=== PATIENT | male | born 1950 | race Caucasian/White ===

== ENCOUNTER 2018-09-30 15:58 | Observation (INO) | payer MEDICARE ==
[~2018-09-30] VITALS: Ht 175.3 cm; Wt 106.8 kg
[~2018-09-30 15:58] MED LIST: ALLOPURINOL300 MG PO; AMIODARONE HCL200 MG PO; ASPIR 8181 MG PO; CELEBREX200 MG PO; LASIX40 MG PO; METFORMIN HCL500 MG PO; METOLAZONE5 MG PO; METOPROLOL TART25 MG PO; POTASSIUM CHLO10 ME1 PO; SPIRONOLACTONE25 MG PO; SYNTHROID125 MCG PO; SYNTHROID50 MCG PO; XARELTO20 MG PO
[2018-09-30] MEDS ORDERED: AMIODARONE HCL 150 MG/100 ML BAG IV ONE (16:30)
[2018-09-30] MEDS ORDERED: AMIODARONE HCL 150MG 100 ML IV SCH (16:30)
[2018-09-30] MEDS ORDERED: DIGOXIN INJ 0.25 MG/ML 2 ML AMP IV ONE (16:30)
[2018-09-30 16:39] LABS: BASOPHILS # (AUTO) 0.1 (0.0-0.1); BASOPHILS % 0.6 % (0.0-1.0); EOSINOPHILS # (AUTO) 0.2 (0.0-0.4); EOSINOPHILS % 1.5 % (0.0-6.0); HEMOGLOBIN 11.8 g/dL (14.0-18.0); LYMPHOCYTES # (AUTO) 2.1 (1.0-3.2); LYMPHOCYTES % 18.2 % (18.0-39.1); MEAN CORPUSCULAR HEMOGLOBIN 29.8 pg (28-32); MEAN CORPUSCULAR HGB CONC 33.7 g/dL (31-35); MEAN CORPUSCULAR VOLUME 88.4 fL (81-99); MONOCYTES # (AUTO) 1.1 (0.2-0.8); MONOCYTES % 10.1 % (4.4-11.3); NEUTROPHILS # (AUTO) 7.8 (2.1-6.9); NEUTROPHILS % 69.3 % (38.7-80.0); PLATELET COUNT 399 x10e3/uL (140-360); RED BLOOD COUNT 3.96 x10e6/uL (4.3-5.7); RED CELL DISTRIBUTION WIDTH 14.6 % (11.7-14.4)
[2018-09-30 16:54] LABS: INR 0.96; PROTHROMBIN TIME 13.7 seconds (11.9-14.5)
[2018-09-30 16:55] LABS: PARTIAL THROMBOPLASTIN TIME 38.2 seconds (23.8-35.5)
[2018-09-30 17:01] LABS: ALANINE AMINOTRANSFERASE 13 IU/L (0-55); ALBUMIN 3.9 g/dL (3.5-5.0); ALBUMIN/GLOBULIN RATIO 0.9 (0.8-2.0); ALKALINE PHOSPHATASE 81 IU/L (40-150); ANION GAP 11.8 mmol/L (8-16); BLOOD UREA NITROGEN 15 mg/dL (7-26); BUN/CREATININE RATIO 18 (6-25); CALCIUM 10.4 mg/dL (8.4-10.2); CARBON DIOXIDE 32 mmol/L (22-29); CHLORIDE 94 mmol/L (98-107); CREATINE KINASE 74 IU/L (30-200); CREATININE, SERUM 0.85 mg/dL (0.72-1.25); EST GLOMERULAR FILTRATION RATE > 60 ML/MIN (60-); GLUCOSE 105 mg/dL (74-118); SODIUM 135 mmol/L (136-145)
[2018-09-30 17:04] LABS: POTASSIUM 2.8 mmol/L (3.5-5.1)
[2018-09-30] MEDS ORDERED: POTASSIUM CHLORIDE 20 MEQ TAB CR PO STA (17:06)
[2018-09-30] MEDS ORDERED: POTASSIUM CHLORIDE 20MEQ/100ML 100 ML IV ONE (17:15)
[2018-09-30 17:26] LABS: CLARITY,URINE CLEAR (CLEAR); COLOR,URINE YELLOW (YELLOW)
[2018-09-30 17:27] LABS: BILIRUBIN,URINE NEGATIVE (NEGATIVE); KETONES,URINE NEGATIVE (NEGATIVE); LEUKOCYTE ESTERASE ,URINE NEGATIVE (NEGATIVE); NITRITE,URINE NEGATIVE (NEGATIVE); PROTEIN,URINE DIPSTICK NEGATIVE (NEGATIVE); URINE UROBILINOGEN 0.2 mg/dL (0.2 - 1)
[2018-09-30] MEDS ORDERED: AMIODARONE HCL 900 MG in DEXTROSE 5% 500ML 500 ML IV STA (17:38)
[2018-09-30] MEDS ORDERED: SODIUM CHLORIDE 0.9% 1000ML 1,000 ML IV STA (18:24)
--- NOTE | 2018-09-30 18:35 | Diagnostic Imaging Report ---
EXAMINATION: CHEST SINGLE (PORTABLE) INDICATION: ^CHEST PAIN ^[id number] ^1655 ^Y COMPARISON: None FINDINGS: AP view TUBES and LINES: None. LUNGS: Limited by body habitus. Lungs are well inflated. There is no evidence of pneumonia or pulmonary edema. PLEURA: No pleural effusion or pneumothorax. HEART AND MEDIASTINUM: The cardiomediastinal silhouette is unremarkable. BONES AND SOFT TISSUES: No acute osseous lesion. Soft tissues are unremarkable. UPPER ABDOMEN: No free air under the diaphragm. IMPRESSION: No acute thoracic abnormality. Signed by: Dr. Vineet Belcher MD on 09/30/2018 6:32 PM
[2018-09-30 22:58] VITALS: BP 118/83
[2018-09-30 23:02] VITALS: BP 118/83
[2018-09-30 23:20] VITALS: BP 118/83
[2018-09-30 23:59] VITALS: BP 122/84
[2018-10-01] VITALS (7 sets, daily range): BP systolic 90–117; BP diastolic 53–79
[2018-10-01 00:45] LABS: CREATINE KINASE MB 1.5 ng/mL (0-5.0)
[2018-10-01] MEDS: LEVOTHYROXINE SODIUM 125 MCG TAB PO SCH (06:44)
[2018-10-01] MEDS: METOPROLOL TARTRATE 50 MG TAB PO SCH ×3 (06:44→21:21)
[2018-10-01 07:35] LABS: BASOPHILS # (AUTO) 0.1 (0.0-0.1); BASOPHILS % 0.5 % (0.0-1.0); EOSINOPHILS # (AUTO) 0.2 (0.0-0.4); EOSINOPHILS % 1.7 % (0.0-6.0); HEMATOCRIT 32.4 % (38.2-49.6); HEMOGLOBIN 10.7 g/dL (14.0-18.0); LYMPHOCYTES # (AUTO) 1.6 (1.0-3.2); LYMPHOCYTES % 16.9 % (18.0-39.1); MEAN CORPUSCULAR HEMOGLOBIN 29.4 pg (28-32); MONOCYTES # (AUTO) 0.8 (0.2-0.8); MONOCYTES % 8.6 % (4.4-11.3); NEUTROPHILS # (AUTO) 6.7 (2.1-6.9); NEUTROPHILS % 71.9 % (38.7-80.0); PLATELET COUNT 345 x10e3/uL (140-360); RED BLOOD COUNT 3.64 x10e6/uL (4.3-5.7); RED CELL DISTRIBUTION WIDTH 14.6 % (11.7-14.4)
[2018-10-01 07:48] LABS: ANION GAP 12.4 mmol/L (8-16); BLOOD UREA NITROGEN 9 mg/dL (7-26); BUN/CREATININE RATIO 13 (6-25); CALCIUM 9.9 mg/dL (8.4-10.2); CARBON DIOXIDE 30 mmol/L (22-29); CHLORIDE 97 mmol/L (98-107); CREATININE, SERUM 0.72 mg/dL (0.72-1.25); EST GLOMERULAR FILTRATION RATE > 60 ML/MIN (60-); GLUCOSE 126 mg/dL (74-118); POTASSIUM 3.4 mmol/L (3.5-5.1); SODIUM 136 mmol/L (136-145)
[2018-10-01 08:10] LABS: CREATINE KINASE MB 1.5 ng/mL (0-5.0)
[2018-10-01] MEDS: SPIRONOLACTONE 25 MG TAB PO SCH ×2 (08:10→17:00)
[2018-10-01] MEDS: POTASSIUM CHLORIDE 10MEQ EA PO SCH (08:10)
[2018-10-01] MEDS: DIGOXIN 0.125 MG TAB PO SCH (08:12)
[2018-10-01] MEDS: ENOXAPARIN INJ 80 MG/0.8 ML SYR SC SCH ×2 (08:13→21:00)
[2018-10-01] MEDS: FUROSEMIDE 40 MG TAB PO SCH (08:13)
--- NOTE | 2018-10-01 08:47 | History and Physical ---
PRIMARY CARE PHYSICIAN: Dr. Michael Lei CHIEF COMPLAINT: Chest tightness. HISTORY OF PRESENT ILLNESS: This is a 68-year-old man with a history of cardiac arrhythmia/atrial flutter and diabetes mellitus, now developing chest tightness. He checked his heart rate at home. It was 150 per minute. Therefore, he called his doctor and asked to come to the hospital. Here he was found to have atrial flutter with RVR. He is admitted for further evaluation and management. PAST MEDICAL HISTORY: Diabetes mellitus, type 2, hypertension, atrial flutter, hypothyroidism, CHF, possibly diastolic, and gout. PAST SURGICAL HISTORY: Left finger and cataract surgery. ALLERGIES: PER ELECTRONIC MEDICAL RECORD. FAMILY/SOCIAL HISTORY: Patient is . He has 3 children. No alcohol, illicits or cigarettes. MEDICATIONS: Per electronic medical record. REVIEW OF SYSTEMS: Denies any dizziness, fever, chills, sweats, nausea, vomiting, diarrhea, headache, vision changes, back pain. PHYSICAL EXAMINATION VITAL SIGNS: Reviewed. GENERAL: A tired-appearing man resting in bed. HEENT: Anicteric. CARDIOVASCULAR: Normal S1 and S2. Rapid and irregular heart rate. LUNGS: Moderate breath sounds. ABDOMEN: Soft, nontender and nondistended. EXTREMITIES: No edema or calf tenderness. NEUROLOGICAL: Alert and oriented times 3. Moving all extremities. SKIN: Dry. PSYCHIATRIC: Flat affect. LABS: Reviewed. MEDICATIONS: Reviewed. ASSESSMENT: This is a 66-year-old man with: 1. Atrial flutter with rapid ventricular response. 2. Diabetes mellitus, type 2. 3. Hypothyroidism. 4. Hypokalemia. 5. Congestive heart failure, likely diastolic, which is chronic. 6. Gout. PLAN 1. Rate control with AV blocking agents. Will continue to utilize digoxin, beta clifton and amiodarone. 2. Cardiology consultation. 3. Will add Lovenox q.12 h. 4. Add Pepcid while on Lovenox. 5. Follow up echocardiogram. 6. Monitor closely. Job#: [id number] ME
[2018-10-01 08:51] LABS: CHOL/HDL RATIO 4.1 (3.9-4.7)
[2018-10-01 09:11] LABS: THYROID STIMULATING HORMONE 0.123 uIU/mL (0.350-4.940)
[2018-10-01] MEDS ORDERED: DEXTROSE 50% SYRINGE 50 ML IV PRN (11:00)
[2018-10-01] MEDS: FAMOTIDINE 20 MG TAB PO SCH ×2 (11:28→17:13)
[2018-10-01 13:09] LABS: MAGNESIUM 1.9 MG/DL (1.3-2.1)
[2018-10-01] MEDS ORDERED: POTASSIUM CHLORIDE 20 MEQ TAB CR PO NR (13:30)
[2018-10-01 13:36] LABS: FREE T4 (FREE THYROXINE) 1.46 ng/dL (0.9-1.8)
[2018-10-01 13:37] LABS: DIGOXIN < 0.30 ng/mL (0.8-2.0)
[2018-10-01] MEDS ORDERED: METOPROLOL TARTRATE 25 MG TAB PO SCH (14:00)
--- NOTE | 2018-10-01 15:52 | Consultation ---
DATE OF CONSULTATION: October 01, 2018 CARDIOLOGY CONSULTATION REASON FOR CONSULTATION: Atrial flutter with rapid ventricular response. HISTORY OF PRESENT ILLNESS: This is a 68-year-old man with a history of hypertension, hyperlipidemia, diabetes mellitus, chronic diastolic heart failure, and prior history of atrial fibrillation/flutter who presented from home with rapid heart rate. The patient's states that he had symptoms of palpitations and chest discomfort, and checked his pulse rate on his 's pulse oximeter and noted that it was around 150 beats per minute. The patient then was evaluated here and was found to have atrial flutter with rapid ventricular response. He was initiated on oral digoxin, metoprolol and intravenous amiodarone. Currently, he is feeling well and is ready to go home. Denies any chest pain, palpitations, lightheadedness or near syncopal symptoms. He otherwise feels well and denies any other ongoing symptoms. REVIEW OF SYSTEMS: A 12-point review of systems was conducted, and is negative other than stated above in the HPI. PAST MEDICAL HISTORY: Hypertension, diabetes mellitus, atrial fibrillation/flutter, hypothyroidism. PAST SURGICAL HISTORY: Transesophageal echocardiogram and direct current cardioversion, cataract surgery. PAST FAMILY HISTORY: No premature coronary artery disease or sudden cardiac . SOCIAL HISTORY: No illicit drug use, alcohol or drug use. ALLERGIES: NO KNOWN DRUG ALLERGIES. MEDICATIONS: See medication reconciliation form. PHYSICAL EXAMINATION VITAL SIGNS: Temperature 97.4, heart rate 144, respirations 16, blood pressure 114/79, oxygen saturation 99% on 2 liters nasal cannula. GENERAL: He is well-appearing man lying comfortably in bed, in no apparent distress. Alert and oriented x3. HEENT: Head is normocephalic, atraumatic. Eyes: Extraocular movements are intact. Conjunctivae clear. NECK: No JVD. No bruits. CARDIOVASCULAR: Regular rate, tachycardiac. Normal S1 and S2. No murmurs. LUNGS: Clear to auscultation bilaterally. No wheezing or rales. ABDOMEN: Soft, nontender, nondistended. Normoactive bowel sounds. EXTREMITIES: No cyanosis, clubbing or edema. VASCULAR: 2+ pulses. SKIN: Warm, dry, and intact. NEUROLOGIC: No focal deficits noted. Cranial nerves are grossly intact. PSYCHIATRIC: Normal mood and affect. LABORATORY DATA: Shows white blood cell count of 9, hemoglobin 10, platelets 345,000. Potassium upon arrival was 2.8, currently 3.4. Negative cardiac enzymes x3. TSH is low at 0.123. A 12-lead electrocardiogram showed atrial flutter with rapid ventricular response. Chest x-ray showed no acute thoracic abnormalities. Telemetry monitoring revealed atrial flutter with rapid ventricular response. IMPRESSION AND RECOMMENDATIONS 1. Atrial flutter with rapid ventricular response. The patient is currently asymptomatic. A 2D echocardiogram showed overall preserved left ventricular systolic function. The patient was initiated on amiodarone intravenously and will continue this. The patient is also currently on oral digoxin and beta blockers. Will order a free T4, digoxin level, and a magnesium level in addition to replacing potassium to keep levels greater than 4 and will need to replace magnesium if low to a level greater than 2. If digoxin level is within normal limits, will re-dose with digoxin. The patient may require transesophageal echocardiography and direct cardioversion if does not break within the next 12 to 24 hours. The patient may also consider flutter ablation as an outpatient procedure. 2. Hypertension. The patient's blood pressure is well controlled on current regimen. 3. Hypothyroidism. His TSH is mildly reduced. Will check a free T4 and will defer titration to primary team. 4. Diabetes mellitus. Treatment per primary team. 5. Chest pain. The patient ruled out for acute myocardial infarction. Will defer on stress testing too with outpatient setting. Thank you for the consultation. Will follow along with you. Job#: [id number]
[2018-10-01] MEDS: INSULIN REGULAR, HUMAN 100 UNIT/1 ML 3ML VIAL SQ SCH ×2 (16:30→21:00)
[2018-10-01 16:41] LABS: CREATINE KINASE MB 1.2 ng/mL (0-5.0)
[2018-10-01] MEDS ORDERED: AMIODARONE HCL 900 MG in DEXTROSE 5% 500ML 500 ML IV STA (17:17)
[2018-10-02] VITALS (10 sets, daily range): BP systolic 100–127; BP diastolic 70–83
[2018-10-02] MEDS: LEVOTHYROXINE SODIUM 125 MCG TAB PO SCH (06:00)
[2018-10-02] MEDS: METOPROLOL TARTRATE 50 MG TAB PO SCH ×2 (06:15→17:09)
[2018-10-02] MEDS: FAMOTIDINE 20 MG TAB PO SCH ×2 (07:30→17:09)
[2018-10-02] MEDS: INSULIN REGULAR, HUMAN 100 UNIT/1 ML 3ML VIAL SQ SCH ×4 (07:30→20:22)
[2018-10-02 08:44] LABS: ANION GAP 13.5 mmol/L (8-16); BLOOD UREA NITROGEN 12 mg/dL (7-26); BUN/CREATININE RATIO 16 (6-25); CALCIUM 10.3 mg/dL (8.4-10.2); CARBON DIOXIDE 30 mmol/L (22-29); CHLORIDE 98 mmol/L (98-107); CREATININE, SERUM 0.77 mg/dL (0.72-1.25); EST GLOMERULAR FILTRATION RATE > 60 ML/MIN (60-); GLUCOSE 127 mg/dL (74-118); POTASSIUM 3.5 mmol/L (3.5-5.1); SODIUM 138 mmol/L (136-145)
[2018-10-02] MEDS: POTASSIUM CHLORIDE 10MEQ EA PO SCH (09:00)
[2018-10-02] MEDS: SPIRONOLACTONE 25 MG TAB PO SCH ×2 (09:00→17:09)
[2018-10-02] MEDS: ENOXAPARIN INJ 80 MG/0.8 ML SYR SC SCH (09:30)
[2018-10-02] MEDS: FUROSEMIDE 40 MG TAB PO SCH (09:30)
[2018-10-02] MEDS: DIGOXIN 0.125 MG TAB PO SCH (09:30)
[2018-10-02] MEDS ORDERED: BENZOCAINE 20% SPR 60 ML CAN ONE (11:46)
[2018-10-02] MEDS ORDERED: SODIUM CHLORIDE 0.9% 1000ML 1,000 ML ONE (11:46)
--- NOTE | 2018-10-02 14:49 | Operative Report ---
DATE OF PROCEDURE: PROCEDURES PERFORMED 1. Transesophageal echocardiogram. 2. Direct current cardioversion. PREOPERATIVE DIAGNOSIS: Atrial flutter with rapid ventricular response. POSTOPERATIVE DIAGNOSIS: Atrial flutter with rapid ventricular response. ESTIMATED BLOOD LOSS: Zero. PROCEDURE DETAILS: After informed consent was obtained, the patient was brought to the operating room in the fasting, nonsedated state. His posterior pharynx was sprayed with Cetacaine for topical anesthesia. With anesthesia assistance, a transesophageal echocardiogram probe was passed with ease, and multiple images of the heart were performed. There were no masses or thrombi noted. Probe was removed. The patient underwent direct current cardioversion synchronized with 200 joules with prompt baptism of normal sinus rhythm. The patient tolerated the procedure well. No immediate complications. Was transferred back to his room in stable condition. Job#: [id number] MARY
--- NOTE | 2018-10-02 15:04 | Progress Note ---
DATE: CARDIOLOGY PROGRESS NOTE SUBJECTIVE: Patient underwent successful DONALD and direct-current cardioversion today with prompt bahai of normal sinus rhythm. Patient is asymptomatic, feels well, denies any chest pain or palpitations. OBJECTIVE VITAL SIGNS: Temperature is 98.4, heart rate is 83, blood pressure is 112/72, oxygen saturation is 97% on 3 liters nasal cannula. GENERALLY: He is well-appearing, well-built, alert and oriented x3. CARDIOVASCULAR: Regular rate and rhythm. LUNGS: Clear to auscultation. ABDOMEN: Soft, nontender, nondistended. EXTREMITIES: No edema. VASCULAR: 2+ pulses. NEUROLOGIC: No focal deficits noted. Laboratory data reviewed. Telemetry monitoring reviewed, showed atrial flutter with rapid ventricular response this morning, currently normal sinus rhythm. Inpatient cardiovascular medications reviewed. IMPRESSION 1. Atrial flutter with rapid ventricular response. 2. Hypertension. 3. Hypothyroidism. 4. Diabetes mellitus. 5. Chest pain. RECOMMENDATIONS 1. Patient underwent successful DONALD and cardioversion to normal sinus rhythm today. Patient has been on chronic anticoagulation, and no masses or thrombi were noted on the DONALD. Can change the amiodarone back to oral and continue beta blockers and digoxin. Please keep electrolytes for a potassium greater than 4, magnesium greater than 2. 2. Hypertension. The patient's blood pressure is well controlled on current regimen. 3. Hypothyroidism. Patient's TSH was mildly educed. However, his free T4 was within normal limits. 4. Chest pain. Patient's chest pain has resolved and he had ruled out for acute myocardial infarction. Job#: [id number] EV
[2018-10-02] MEDS ORDERED: LIDOCAINE HCL 2% LOCAL INJ 5 ML SDV VIAL INJ ONE (15:17)
[2018-10-02] MEDS ORDERED: PROPOFOL IV EMULSION 10 MG/ML 20 ML VIAL ONE (15:17)
[2018-10-02] MEDS ORDERED: MIDAZOLAM HCL 2 MG/2 ML VIAL ONE (16:30)
[2018-10-02] MEDS ORDERED: FENTANYL CITRATE/PF 100MCG/2 ML INJ ONE (16:30)
[2018-10-02] MEDS: DABIGATRAN ETEXILATE 150 MG CAP PO SCH (17:09)
[2018-10-02] MEDS: AMIODARONE HCL 200 MG TAB PO SCH (17:09)
[2018-10-03 04:06] VITALS: BP 114/66
[2018-10-03] MEDS: LEVOTHYROXINE SODIUM 125 MCG TAB PO SCH (05:15)
[2018-10-03 07:24] VITALS: BP 114/63
[2018-10-03] MEDS: INSULIN REGULAR, HUMAN 100 UNIT/1 ML 3ML VIAL SQ SCH ×2 (07:30→11:30)
[2018-10-03] MEDS: FAMOTIDINE 20 MG TAB PO SCH (07:30)
[2018-10-03] MEDS: AMIODARONE HCL 200 MG TAB PO SCH (08:27)
[2018-10-03] MEDS: SPIRONOLACTONE 25 MG TAB PO SCH (08:27)
[2018-10-03] MEDS: FUROSEMIDE 40 MG TAB PO SCH (08:28)
[2018-10-03] MEDS: DABIGATRAN ETEXILATE 150 MG CAP PO SCH (08:28)
[2018-10-03] MEDS: METOPROLOL TARTRATE 50 MG TAB PO SCH (08:28)
[2018-10-03] MEDS: POTASSIUM CHLORIDE 10MEQ EA PO SCH (08:28)
[2018-10-03 09:06] VITALS: BP 114/63
[2018-10-03 11:30] VITALS: BP 123/74
[2018-10-03] MEDS ORDERED: FAMOTIDINE20 MG PO (13:52)
[2018-10-03] MEDS ORDERED: PRADAXA150 MG PO (13:52)
[2018-10-03] MEDS ORDERED: AMIODARONE HCL200 MG PO (13:52)
[2018-10-03] MEDS ORDERED: PRAVASTATIN SOD20 MG PO (13:52)
[2018-10-03] MEDS ORDERED: ASPIRIN325 MG PO (13:52)
[2018-10-03] MEDS ORDERED: METOPROLOL TART50 MG PO (13:52)
[2018-10-03] MEDS ORDERED: PRAVASTATIN 20 MG TAB PO SCH (21:00)
[2018-10-04] MEDS ORDERED: ASPIRIN 81 MG CHEW TAB PO SCH (09:00)
[2018-10-04] MEDS ORDERED: ASPIRIN 325 MG TAB PO SCH (09:00)
== END 2018-10-03 15:30 | disposition home or self-care (01) ==
LOC: ER 15:58 → ERHOLD 17:28 → IMCU 22:12
PROVIDERS: ADMIT Internal Medicine; ATTEND Internal Medicine
DX: I48.92 Unspecified atrial flutter (principal); E87.6 Hypokalemia; I11.0 Hypertensive heart disease with heart failure; I50.32 Chronic diastolic (congestive) heart failure; I48.91 Unspecified atrial fibrillation; E11.9 Type 2 diabetes mellitus without complications; Z79.84 Long term (current) use of oral hypoglycemic drugs; M10.9 Gout, unspecified; E03.9 Hypothyroidism, unspecified; Z79.82 Long term (current) use of aspirin; Z87.891 Personal history of nicotine dependence
CPT/HCPCS: 36415 ×3; 71045; 80048 ×2; 80053; 80061; 80162; 81001; 82550 ×2; 82553 ×2; 82948 ×3; 83036; 83735; 83880; 84439; 84443; 84484 ×2; 85025 ×2; 85610; 85730; 92960; 93005 ×3; 93306; 93312; 93320; 93325; 96366; 96372 ×2; 99284; G0378 ×4; J1160; J1650 ×2; J1817; J2001; J2250; J2704; J3480; J7030 ×2; J7060 ×2; 96365

== ENCOUNTER 2019-12-13 09:48 | Inpatient (IN) | payer MEDICARE ==
[~2019-12-13] VITALS: Ht 175.3 cm; Wt 111.1 kg
[~2019-12-13 09:48] MED LIST changes: +ASPIRIN325 MG PO; +FAMOTIDINE20 MG PO; +METOPROLOL TART50 MG PO; +PRADAXA150 MG PO; +PRAVASTATIN SOD20 MG PO
--- OUTSIDE RECORDS SUMMARY | 2019-12-13 09:50 | XMS REPORT ---
Author Author [facility] Address Unknown Phone Unavailable Care Team Providers Care Train Control Electronic Technician Name Role Phone BABS BARTHOLOMEW Unavailable Unavailable Problems This patient has no known problems. Allergies, Adverse Reactions, Alerts This patient has no known allergies or adverse reactions. Medications This patient has no known medications. Results Test Description Test Time Test Comments Text Results Atomic Results Result Comments CHEST SINGLE (PORTABLE) 2018-09-30 18:32:00 [place] [address] Patient Name: TILA SANTANA MR #: [id number] : 1950 Age/Sex: 68/M Req #: [id number] Adm Physician: BABS BARTHOLOMEW MD Ordered by: MACKENZIE HARE MD Report #: [id number] Location: [facility] Room/Bed: [place] [address] Procedure: [id number] DX/CHEST SINGLE (PORTABLE) Exam Date: 09/30/18 Exam Time: 1654 REPORT STATUS: Signed EXAMINATION: CHEST SINGLE (PORTABLE) IND ICATION: CHEST PAIN [id number] Y COMPARISON: None FINDINGS: AP view TUBES and LINES: None. LUNGS: Limited by body habitus. Lungs are well inflated. There is no evidence of pneumonia or pulmonary edema. PLEURA: No pleural effusion or pneumothorax. HEART AND MEDIASTINUM: The cardiomediastinal silhouette is unremarkable. BONES AND SOFT TISSUES: No acute osseous lesion. Soft tissues are unremarkable. UPPER ABDOMEN: No free air under the diaphragm. IMPRESSION: No acute thoracic abnormality. Signed by: Dr. Vineet Matute MD on 09/30/2018 6:32 PM Dictated By: VINEET MATUTE MD 31 Transcribed By: ANGE on 09/30/181831 COPY TO: MACKENZIE HARE MD
[2019-12-13] MEDS ORDERED: DILTIAZEM HCL 5 MG/ML 5 ML VIAL IV ONE (10:30)
[2019-12-13 10:35] LABS: BASOPHILS # (AUTO) 0.1 (0.0-0.1); BASOPHILS % 0.7 % (0.0-1.0); EOSINOPHILS # (AUTO) 0.2 (0.0-0.4); EOSINOPHILS % 1.9 % (0.0-6.0); HEMATOCRIT 36.5 % (38.2-49.6); HEMOGLOBIN 12.6 g/dL (14.0-18.0); LYMPHOCYTES # (AUTO) 2.1 (1.0-3.2); LYMPHOCYTES % 19.3 % (18.0-39.1); MEAN CORPUSCULAR HEMOGLOBIN 30.4 pg (28-32); MEAN CORPUSCULAR HGB CONC 34.5 g/dL (31-35); MONOCYTES % 9.2 % (4.4-11.3); NEUTROPHILS # (AUTO) 7.6 (2.1-6.9); NEUTROPHILS % 68.5 % (38.7-80.0); PLATELET COUNT 427 x10e3/uL (140-360); RED BLOOD COUNT 4.15 x10e6/uL (4.3-5.7); RED CELL DISTRIBUTION WIDTH 14.5 % (11.7-14.4)
[2019-12-13 11:10] LABS: ALANINE AMINOTRANSFERASE 16 IU/L (0-55); ALKALINE PHOSPHATASE 80 IU/L (40-150); ANION GAP 15.4 mmol/L (8-16); BLOOD UREA NITROGEN 16 mg/dL (7-26); BUN/CREATININE RATIO 16 (6-25); CALCIUM 9.7 mg/dL (8.4-10.2); CARBON DIOXIDE 31 mmol/L (22-29); CHLORIDE 94 mmol/L (98-107); CREATINE KINASE 35 IU/L (30-200); CREATININE, SERUM 0.98 mg/dL (0.72-1.25); EST GLOMERULAR FILTRATION RATE > 60 ML/MIN (60-); GLUCOSE 147 mg/dL (74-118); POTASSIUM 3.4 mmol/L (3.5-5.1); SODIUM 137 mmol/L (136-145)
--- NOTE | 2019-12-13 12:10 | Diagnostic Imaging Report ---
Exam: Chest radiograph Clinical History: Atrial fibrillation Findings: The cardiomediastinal silhouette and lungs are normal. The regional skeleton and soft tissue are unremarkable. There is no evidence of pleural effusion or pneumothorax. Impression: No radiographic evidence of acute cardiopulmonary disease. Signed by: Dr. Ramsey Chester MD on 12/13/2019 12:07 PM
[2019-12-13] MEDS ORDERED: AMIODARONE HCL 900 MG in DEXTROSE 5% 500ML 500 ML IV STA (12:33)
--- NOTE | 2019-12-13 15:51 | NUR ---
PRIMARY CARE PHYSICIAN: :None CHIEF COMPLAINT:rapid HR HISTORY OF PRESENT ILLNESS: This is a 69-year-old man with a history of cardiac arrhythmia/atrial flutter, developed rapid heart rate; Pt denies chest palpitations; No SOB. Identified rapid HR upon random testing at home. PAST MEDICAL HISTORY: Diabetes mellitus, type 2, hypertension, atrial flutter, hypothyroidism, Diastolic CHF, possibly diastolic, and gout. PAST SURGICAL HISTORY: Left finger and cataract surgery. ALLERGIES: PER ELECTRONIC MEDICAL RECORD. FAMILY/SOCIAL HISTORY: Patient is . He has 3 children. No alcohol, illicits or cigarettes. MEDICATIONS: Per electronic medical record. REVIEW OF SYSTEMS: Denies any dizziness, fever, chills, sweats, nausea, vomiting, diarrhea, headache, vision changes, back pain. PHYSICAL EXAMINATION VITAL SIGNS: Reviewed. GENERAL: A tired-appearing man resting in bed. HEENT: Anicteric. CARDIOVASCULAR: Normal S1 and S2. Rapid and irregular heart rate. LUNGS: Moderate breath sounds. ABDOMEN: Soft, nontender and nondistended. EXTREMITIES: No edema or calf tenderness. NEUROLOGICAL: Alert and oriented times 3. Moving all extremities. SKIN: Dry. PSYCHIATRIC: Flat affect. LABS: Reviewed. MEDICATIONS: Reviewed. ASSESSMENT: This is a 66-year-old man with: 1. Atrial flutter with rapid ventricular response- amio/BB; cardio eval. 2. DM2- hab1c/lipids; ssi. 3. Hypothyroidism- synthroid; check TSH 4. Hypokalemia- replace and recheck 5. Congestive heart failure, likely diastolic, which is chronic- appears euvolemic. 6. Gout. Josafat Hammer MD, PhD
[2019-12-13 16:10] LABS: CHOL/HDL RATIO 4.2 (3.9-4.7)
[2019-12-13] MEDS: ENOXAPARIN SOD INJ 60 MG/0.6 ML SYR SC SCH (16:42)
[2019-12-13] MEDS ORDERED: METOPROLOL TARTRATE 50 MG TAB PO SCH (17:00)
--- NOTE | 2019-12-13 17:00 | NUR ---
Handoff report to oncoming nurse made aware patient on amiodarone drip, verbalized understanding.
--- NOTE | 2019-12-13 17:25 | NUR ---
Received patient from ER with Amiodarone drip infusing at 33ml/hr. Patient alert and oriented x3, independent, verbalizing needs, placed on front desk monitor. Oriented to room and use of call light, verbalized understanding. Belongings and call light within reach will continue to monitor.
--- NOTE | 2019-12-13 17:30 | NUR ---
Patient assessed heart rhythm sinus tachycardia with hear rate ranging between 130's -140's placed call to cardiac group spoke with Dr. Frederick Londono made him aware patient was sinus tachycardia with occasional PVC's, and patient was on Amiodarone drip at 33ml/hr and that per ER report we were to infuse entire bag of Amiodarone @33/mls per hour due to heart rate received orders to continue with current orders from ER.
[2019-12-13 17:50] VITALS: BP 137/72
[2019-12-13 18:41] VITALS: BP 135/79
[2019-12-13 19:20] VITALS: BP 107/93
--- NOTE | 2019-12-13 19:49 | NUR ---
dr Wilkins came and saw patient in his room, she ordered to follow protocol on Amiodarone drip, which the rate needs to be lowered to 16.7 ml/hr.
[2019-12-13] MEDS: PRAVASTATIN 20 MG TAB PO SCH (20:12)
--- NOTE | 2019-12-13 22:47 | NUR ---
PATIENT COMPLAINED OF LEGS PAIN, PER PATIENT HE USUALLY TAKES TYLENOL EXTRA STRENGTH 2 TABS AT HOME. CALLED AND SPOKE WITH DR BARTHOLOMEW, THE MD OK TO GIVE THE SAME DOSE LIKE HE TAKES AT HOME.
[2019-12-13] MEDS: ACETAMINOPHEN 325 MG TAB PO PRN (23:03)
[2019-12-13] MEDS: METOPROLOL TARTRATE 50 MG TAB PO SCH (23:08)
[2019-12-14] VITALS (9 sets, daily range): BP systolic 94–122; BP diastolic 61–81
--- NOTE | 2019-12-14 02:01 | Consultation ---
DATE OF CONSULTATION: 12/13/2019 REQUESTING PHYSICIAN: Josafat Hammer MD REASON FOR CONSULTATION: Atrial fibrillation rapid ventricular response. HISTORY OF PRESENT ILLNESS: This is a 69-year-old man with history of atrial fibrillation status post DONALD cardioversion, hypertension, hyperlipidemia, diabetes mellitus, and chronic diastolic heart failure, who presented with complaints of tachycardia. The patient indicates that he has been decreasing the frequency, he had self decreased the frequency of his Pradaxa due to cost. Due to this, he had been monitoring his heart rate at home. He notes his heart rate had been elevated for the last week in the 130s, his heart rate was in the 140s today, so he presented to the ER for further evaluation. Denies any chest pain, shortness breath, palpitations, orthopnea, or PND. He states he has chronic lower extremity edema. REVIEW OF SYSTEMS: Negative except as per HPI. PAST MEDICAL HISTORY: 1. Atrial fibrillation, status post prior DONALD cardioversion. 2. Hypertension. 3. Hyperlipidemia. 4. Diabetes mellitus. 5. Chronic diastolic heart failure. 6. Hypothyroidism. PAST SURGICAL HISTORY: 1. Cataract surgery. 2. Finger surgery. ALLERGIES: NO KNOWN DRUG ALLERGIES. MEDICATIONS: Please see medication list. SOCIAL HISTORY: Denies tobacco, alcohol, or illicit drugs. FAMILY HISTORY: Denied. PHYSICAL EXAMINATION: VITAL SIGNS: Temperature 98.3, pulse 129, respiratory rate 16, blood pressure 107/93, and oxygen saturation 95% on room air. GENERAL: Well-developed, well-nourished, obese man in no acute distress. HEENT: Normocephalic, atraumatic. Pupils equal. No scleral icterus. NECK: Supple. No thyroid or cervical lymphadenopathy. No carotid bruits. LUNGS: Clear to auscultation bilaterally. No wheeze or crackles. CARDIOVASCULAR: Tachycardic. Irregularly irregular. Normal S1, S2. No murmur. ABDOMEN: Soft and nontender. EXTREMITIES: Trace edema. NEUROLOGIC: Nonfocal exam. SKIN: Warm and dry. Intact. NEUROLOGIC: Nonfocal exam. LABORATORY DATA: WBC 11.02, hemoglobin 12.6, hematocrit 36.5, platelets 427. Sodium 137, potassium 3.4, chloride 94, CO2 is 16, BUN 0.98. Troponin less than 0.001. BNP 28.8. Cholesterol 163, triglycerides 169, LDL 90, HDL 39. EKG appears to be atrial flutter with rapid ventricular response with 2 to 1 conduction. TELEMETRY: 1. Atrial flutter/fibrillation with rapid ventricular response. 2. Hypertension. 3. Hyperlipidemia. 4. Diabetes mellitus. 5. Chronic diastolic heart failure. RECOMMENDATIONS: Continue amiodarone drip. Start patient on Eliquis. Continue Lovenox for CVA prophylaxis. The patient reports Pradaxa is unaffordable. Attempt Eliquis upon discharge. We will titrate up his metoprolol to improve rate control. Continue home cardiac medications otherwise. Monitor the patient on telemetry while admitted. Continue current cardiac medication. Thank you for this consult. We will continue to follow. Karen Wilkins MD ABS/MODL /[id number]
[2019-12-14] MEDS: ENOXAPARIN SOD INJ 60 MG/0.6 ML SYR SC SCH ×2 (03:55→15:58)
[2019-12-14 05:33] LABS: BASOPHILS # (AUTO) 0.1 (0.0-0.1); BASOPHILS % 0.7 % (0.0-1.0); EOSINOPHILS # (AUTO) 0.3 (0.0-0.4); EOSINOPHILS % 2.3 % (0.0-6.0); HEMATOCRIT 37.2 % (38.2-49.6); HEMOGLOBIN 12.3 g/dL (14.0-18.0); LYMPHOCYTES # (AUTO) 2.7 (1.0-3.2); LYMPHOCYTES % 24.1 % (18.0-39.1); MEAN CORPUSCULAR HGB CONC 33.1 g/dL (31-35); MEAN CORPUSCULAR VOLUME 90.7 fL (81-99); NEUTROPHILS % 63.6 % (38.7-80.0); PLATELET COUNT 392 x10e3/uL (140-360); RED CELL DISTRIBUTION WIDTH 14.5 % (11.7-14.4)
[2019-12-14 05:50] LABS: ANION GAP 19.2 mmol/L (8-16); BLOOD UREA NITROGEN 18 mg/dL (7-26); BUN/CREATININE RATIO 18 (6-25); CARBON DIOXIDE 30 mmol/L (22-29); CHLORIDE 92 mmol/L (98-107); CREATININE, SERUM 1.01 mg/dL (0.72-1.25); EST GLOMERULAR FILTRATION RATE > 60 ML/MIN (60-); GLUCOSE 143 mg/dL (74-118); POTASSIUM 3.2 mmol/L (3.5-5.1); SODIUM 138 mmol/L (136-145)
--- NOTE | 2019-12-14 05:56 | NUR ---
IM- progress note O/N: see below REVIEW OF SYSTEMS: Denies any dizziness, fever, chills, sweats, nausea, vomiting, diarrhea, headache, vision changes, back pain. PHYSICAL EXAMINATION VITAL SIGNS: Reviewed. GENERAL: A tired-appearing man resting in bed. HEENT: Anicteric. CARDIOVASCULAR: Normal S1 and S2. Rapid and irregular heart rate. LUNGS: Moderate breath sounds. ABDOMEN: Soft, nontender and nondistended. EXTREMITIES: No edema or calf tenderness. NEUROLOGICAL: Alert and oriented times 3. Moving all extremities. SKIN: Dry. PSYCHIATRIC: Flat affect. LABS: Reviewed. MEDICATIONS: Reviewed. ASSESSMENT: This is a 66-year-old man with: 1. Atrial flutter with rapid ventricular response- amio/BB; cardio eval. 2. DM2- hab1c/lipids; ssi. 3. Hypothyroidism- synthroid; check TSH 4. Hypokalemia- replace and recheck 5. Congestive heart failure, likely diastolic, which is chronic- appears euvolemic. 6. Gout. 12/14 Hba1c/LDL 6. Josafat Hammer MD, PhD
[2019-12-14] MEDS: LEVOTHYROXINE SODIUM 125 MCG TAB PO SCH (06:04)
[2019-12-14] MEDS: METOPROLOL TARTRATE 50 MG TAB PO SCH ×3 (06:04→17:20)
[2019-12-14] MEDS ORDERED: POTASSIUM CHLORIDE 20 MEQ TAB CR PO ONE (07:30)
[2019-12-14] MEDS: ASPIRIN 81 MG ENTERIC COATED PO SCH (07:50)
[2019-12-14] MEDS ORDERED: ASPIRIN 325 MG TAB PO SCH (09:00)
--- NOTE | 2019-12-14 13:04 | Progress Note ---
DATE: 12/14/2019 Cardiology Progress Note SUBJECTIVE: The patient denies chest pain or shortness of breath. OBJECTIVE: VITAL SIGNS: Temperature 97.7 degrees, pulse 125, respiratory rate 18, blood pressure 114/81, and oxygen saturation 96% on room air. GENERAL: Awake, alert, in no acute distress. LUNGS: Clear to auscultation bilaterally. No wheezes or crackles. CARDIOVASCULAR: Tachycardic. Irregularly irregular. No murmur. Normal S1 and S2. ABDOMEN: Soft and nontender. EXTREMITIES: Trace edema. CARDIAC MEDICATIONS: Metoprolol 50 mg p.o. q.6 hours, aspirin 81 mg p.o. daily, levothyroxine 125 mcg p.o. daily, and enoxaparin 60 mg subcutaneous q.12 hours. LABORATORY DATA: WBC 11.06, hemoglobin 12.3, hematocrit 37.2, and platelets 392. Sodium 138, potassium 3.2, chloride 92, CO2 30, BUN 18, and creatinine 1.01. TELEMETRY: Atrial fibrillation with rapid ventricular response. IMPRESSION: 1. Atrial fibrillation/flutter with rapid ventricular response. 2. Hypertension. 3. Hyperlipidemia. 4. Diabetes mellitus. 5. Chronic diastolic heart failure. 6. Hypothyroidism. RECOMMENDATIONS: Start p.o. amiodarone. The patient's heart rate remains poorly controlled. We will add digoxin. Continue current cardiac medications otherwise. Monitor on telemetry while admitted. Thank you for this consult. We will continue to follow. Karen Wilkins MD ABS/MODL /[id number]
[2019-12-14] MEDS: DIGOXIN 0.25 MG TAB PO SCH (13:58)
[2019-12-14] MEDS: AMIODARONE HCL 200 MG TAB PO SCH (16:05)
--- NOTE | 2019-12-14 19:50 | NUR ---
Dr. James present and assessing the pt. New orders received, refer to MD new order clerk for further information.
--- NOTE | 2019-12-14 20:10 | NUR ---
EGD consent in pts chart per Dr. James's order.
[2019-12-14] MEDS: PRAVASTATIN 20 MG TAB PO SCH (20:55)
[2019-12-15] MEDS: METOPROLOL TARTRATE 50 MG TAB PO SCH ×5 (00:27→23:15)
[2019-12-15] MEDS: ENOXAPARIN SOD INJ 60 MG/0.6 ML SYR SC SCH ×2 (03:35→16:57)
[2019-12-15 05:32] LABS: BASOPHILS # (AUTO) 0.1 (0.0-0.1); BASOPHILS % 0.6 % (0.0-1.0); EOSINOPHILS # (AUTO) 0.2 (0.0-0.4); EOSINOPHILS % 2.1 % (0.0-6.0); HEMATOCRIT 36.3 % (38.2-49.6); HEMOGLOBIN 12.1 g/dL (14.0-18.0); LYMPHOCYTES % 17.9 % (18.0-39.1); MEAN CORPUSCULAR HEMOGLOBIN 29.8 pg (28-32); MEAN CORPUSCULAR HGB CONC 33.3 g/dL (31-35); MEAN CORPUSCULAR VOLUME 89.4 fL (81-99); MONOCYTES # (AUTO) 1.1 (0.2-0.8); NEUTROPHILS # (AUTO) 7.6 (2.1-6.9); NEUTROPHILS % 69.1 % (38.7-80.0); PLATELET COUNT 368 x10e3/uL (140-360); RED BLOOD COUNT 4.06 x10e6/uL (4.3-5.7); RED CELL DISTRIBUTION WIDTH 14.4 % (11.7-14.4)
[2019-12-15 05:43] VITALS: BP 111/64
[2019-12-15] MEDS: LEVOTHYROXINE SODIUM 125 MCG TAB PO SCH (05:43)
[2019-12-15 05:47] LABS: ANION GAP 15.5 mmol/L (8-16); BLOOD UREA NITROGEN 20 mg/dL (7-26); BUN/CREATININE RATIO 21 (6-25); CALCIUM 9.7 mg/dL (8.4-10.2); CARBON DIOXIDE 31 mmol/L (22-29); CHLORIDE 96 mmol/L (98-107); CREATININE, SERUM 0.94 mg/dL (0.72-1.25); EST GLOMERULAR FILTRATION RATE > 60 ML/MIN (60-); GLUCOSE 125 mg/dL (74-118); POTASSIUM 3.5 mmol/L (3.5-5.1); SODIUM 139 mmol/L (136-145)
--- NOTE | 2019-12-15 06:30 | NUR ---
IM- progress note O/N: see below REVIEW OF SYSTEMS: Denies any dizziness, fever, chills, sweats, nausea, vomiting, diarrhea, headache, vision changes, back pain. PHYSICAL EXAMINATION VITAL SIGNS: Reviewed. GENERAL: A tired-appearing man resting in bed. HEENT: Anicteric. CARDIOVASCULAR: Normal S1 and S2. Rapid and irregular heart rate. LUNGS: Moderate breath sounds. ABDOMEN: Soft, nontender and nondistended. EXTREMITIES: No edema or calf tenderness. NEUROLOGICAL: Alert and oriented times 3. Moving all extremities. SKIN: Dry. PSYCHIATRIC: Flat affect. LABS: Reviewed. MEDICATIONS: Reviewed. ASSESSMENT: This is a 66-year-old man with: 1. Atrial flutter with rapid ventricular response- amio/BB; cardio eval. 2. DM2- hab1c/lipids; ssi. 3. Hypothyroidism- synthroid; check TSH 4. Hypokalemia- replace and recheck 5. Congestive heart failure, likely diastolic, which is chronic- appears euvolemic. 6. Gout. 12/14 Hba1c/LDL 6.5/90 /12 HR elevated. Josafat Hammer MD, PhD
[2019-12-15 07:21] VITALS: BP 114/78
[2019-12-15] MEDS: ASPIRIN 81 MG ENTERIC COATED PO SCH (09:36)
[2019-12-15] MEDS: AMIODARONE HCL 200 MG TAB PO SCH ×2 (09:36→16:43)
[2019-12-15] MEDS: DIGOXIN 0.25 MG TAB PO SCH (09:36)
[2019-12-15 12:33] VITALS: BP 101/64
[2019-12-15 16:40] VITALS: BP 112/69
[2019-12-15] MEDS ORDERED: DIGOXIN 0.25 MG TAB PO NR (19:15)
[2019-12-15 20:00] VITALS: BP 119/95
[2019-12-15] MEDS: PRAVASTATIN 20 MG TAB PO SCH (20:42)
[2019-12-15 20:50] VITALS: BP 119/95
--- NOTE | 2019-12-15 22:02 | Progress Note ---
DATE: 12/15/2019 SUBJECTIVE: The patient denies chest pain or shortness of breath. OBJECTIVE: VITAL SIGNS: Temperature 98.2 degrees, pulse 135, respiratory rate 24, blood pressure 101/64, oxygen saturation 98% on room air. GENERAL: Awake, alert, in no acute distress. LUNGS: Clear to auscultation bilaterally. No wheezes or crackles. CARDIOVASCULAR: Normal rate. Irregularly irregular. No murmur. Normal S1, S2. ABDOMEN: Soft and nontender. EXTREMITIES: Trace edema. CARDIAC MEDICATIONS: Enoxaparin 60 mg subcu q. 12 hours, metoprolol tartrate 50 mg p.o. q. 6 hours, amiodarone 200 mg p.o. b.i.d., digoxin 0.25 mg p.o. daily, aspirin 81 mg p.o. daily, levothyroxine 125 mcg p.o. daily. LABORATORY DATA: WBC 10.93, hemoglobin 12.1, hematocrit 36.3, platelets 368. Sodium 139, potassium 3.5, chloride 96, CO2 of 31, BUN 20, creatinine 0.94. Telemetry was reviewed and interpreted revealing atrial fibrillation with borderline rate control. IMPRESSION: 1. Atrial fibrillation/flutter. 2. Hypertension. 3. Hyperlipidemia. 4. Diabetes mellitus. 5. Chronic diastolic heart failure. 6. Hypothyroidism. RECOMMENDATIONS: The patient's heart rate remains poorly controlled despite metoprolol, amiodarone, and digoxin. Additional dose of digoxin today if heart rate remains elevated. We will attempt addition of diltiazem. Thank you for this consult. We will continue to follow. Karen Wilkins MD ABS/MODL /[id number]
[2019-12-16] VITALS: BP 101/73
[2019-12-16] MEDS: ENOXAPARIN SOD INJ 60 MG/0.6 ML SYR SC SCH ×2 (03:00→14:38)
[2019-12-16 04:00] VITALS: BP 95/48
[2019-12-16] MEDS: METOPROLOL TARTRATE 50 MG TAB PO SCH ×3 (05:59→17:07)
[2019-12-16] MEDS: LEVOTHYROXINE SODIUM 125 MCG TAB PO SCH (05:59)
[2019-12-16 07:00] VITALS: BP 107/70
[2019-12-16 07:32] VITALS: BP 107/70
[2019-12-16] MEDS: AMIODARONE HCL 200 MG TAB PO SCH ×2 (08:13→16:09)
[2019-12-16] MEDS: DIGOXIN 0.25 MG TAB PO SCH (08:13)
[2019-12-16] MEDS: ASPIRIN 81 MG ENTERIC COATED PO SCH (08:13)
[2019-12-16 11:00] VITALS: BP 121/64
[2019-12-16] MEDS ORDERED: DILTIAZEM HCL ER 120 MG CAP PO SCH (12:00)
[2019-12-16] MEDS: ACETAMINOPHEN 325 MG TAB PO PRN (14:50)
[2019-12-16] MEDS ORDERED: DILTIAZEM HCL 60 MG TAB PO SCH (14:50)
[2019-12-16 15:00] VITALS: BP 106/55
--- NOTE | 2019-12-16 16:37 | Progress Note ---
DATE: 12/16/2019 Cardiology Progress Note SUBJECTIVE: The patient denies chest pain, shortness of breath, or lightheadedness. His heart rate remains poorly controlled. OBJECTIVE: VITAL SIGNS: Temperature 97.8 degrees, pulse 124, respiratory rate 14, blood pressure 121/64, and oxygen saturation 94% on room air. GENERAL: Awake, alert, no acute distress. LUNGS: Clear to auscultation bilaterally. No wheezes or crackles. CARDIOVASCULAR: Tachycardic, irregularly irregular. No murmur. Normal S1, S2. ABDOMEN: Soft, nontender. EXTREMITIES: Trace edema. CARDIAC MEDICATIONS: Metoprolol tartrate 50 mg p.o. q.6 hours, amiodarone 200 mg p.o. b.i.d., digoxin 0.25 mg p.o. daily, aspirin 81 mg p.o. daily, levothyroxine 125 mcg p.o. daily, and enoxaparin 60 mg subcu q.12 hours. LABORATORY DATA: None today. TELEMETRY: Personally reviewed and interpreted revealing atrial flutter with rapid ventricular response. IMPRESSION: 1. Atrial fibrillation/flutter. 2. Hypertension. 3. Hyperlipidemia. 4. Diabetes mellitus. 5. Chronic diastolic heart failure. 6. hypothyroidism. RECOMMENDATIONS: The patient's heart rate remains poorly controlled despite metoprolol, amiodarone, and digoxin. Add diltiazem. The patient did not remain in sinus rhythm after previous DONALD cardioversion. Once rate is controlled, he will need to follow up with Electrophysiology as an outpatient for ablation. In the meantime, continue current cardiac medications. He can be discharged once his heart rate is controlled. Thank you for this consult. We will continue to follow. Karen Wilkins MD [facility] /[id number]
[2019-12-16] MEDS ORDERED: ELIQUIS5 M1 PO (17:00)
[2019-12-16] MEDS ORDERED: METOPROLOL SUCC50 MG PO (17:01)
[2019-12-16] MEDS ORDERED: DIGOXIN125 MCG PO (17:01)
[2019-12-16] MEDS ORDERED: DILTIAZEM 24HR180 MG PO (17:02)
--- NOTE | 2019-12-16 17:30 | NUR ---
Dr. Wilkins evaluated pt walking in hallways, HR elevated into 130's. MD gave orders to see what pt's HR drops to while resting in chair and after dose of cardizem, goal HR is less than 90. MD aware that pt's HR still elevated in 110's. MD ordered additional medication. Pt reevaluated later in the shift. Walking HR is now 110's and resting HR in chair 80's. Dr. Wilkins aware and ok with discharge. Dr. Hammer notified of cardiology's clearance and gave orders to discharge. Dr. Wilkins is calling in new prescriptions (eliquis, Digoxin, Metoprolol succinate, Diltazem ER) to [facility] pharmacy in [place]. Orders to follow up with PCP in 1 week and cardiology in 1-[address] Hammer gave ok to continue home meds with cardiology's changes. Dr. Wilkins verified med rec with RN. Pt educated on discharge instructions and which meds to continue/stop. Pt discharged at 1730. Pt does not appear to be in any distress at this time. to drive pt home.
--- NOTE | 2019-12-16 17:30 | NUR ---
PIV removed at discharge
== END 2019-12-16 17:30 | disposition home or self-care (01) | DRG 309 ==
LOC: ER 09:48 → ERHOLD 12:41 → IMCU 17:21
PROVIDERS: ADMIT Internal Medicine; ATTEND Internal Medicine
DX: I48.92 Unspecified atrial flutter (principal); I50.32 Chronic diastolic (congestive) heart failure; E03.9 Hypothyroidism, unspecified; Z79.4 Long term (current) use of insulin; I11.0 Hypertensive heart disease with heart failure; M10.9 Gout, unspecified; E11.9 Type 2 diabetes mellitus without complications; E87.6 Hypokalemia; E78.5 Hyperlipidemia, unspecified; I48.20 Chronic atrial fibrillation, unspecified; Z79.01 Long term (current) use of anticoagulants
CPT/HCPCS: 36415; 71045; 80048; 80053; 80061; 82550; 82553; 83036; 83880; 84443; 84484; 85025; 93005; 99285; J1650; J7060

== ENCOUNTER 2022-04-26 17:00 | Emergency (ER) | payer MEDICARE ==
[~2022-04-26] VITALS: Ht 175.3 cm; Wt 111.1 kg
[~2022-04-26 17:00] MED LIST changes: +DIGOXIN125 MCG PO; +DILTIAZEM 24HR180 MG PO; +ELIQUIS5 M1 PO; +METOPROLOL SUCC50 MG PO
[2022-04-26] MEDS ORDERED: SODIUM CHLORIDE 0.9% 500ML 500 ML IV ONE (17:45)
[2022-04-26] MEDS ORDERED: METOPROLOL TARTRATE INJ 1 MG/ML VIAL IV ONE (17:45)
[2022-04-26] MEDS ORDERED: SODIUM CHLORIDE 0.9% 500ML 500 ML ONE (17:46)
[2022-04-26] MEDS ORDERED: METOPROLOL TARTRATE INJ 1 MG/ML VIAL ONE (17:46)
[2022-04-26 17:59] LABS: BASOPHILS # (AUTO) 0.1 (0.0-0.1); BASOPHILS % 0.5 % (0.0-1.0); EOSINOPHILS # (AUTO) 0.2 (0.0-0.4); EOSINOPHILS % 1.6 % (0.0-6.0); HEMATOCRIT 40.2 % (38.2-49.6); HEMOGLOBIN 12.5 g/dL (14.0-18.0); LYMPHOCYTES # (AUTO) 1.7 (1.0-3.2); LYMPHOCYTES % 17.1 % (18.0-39.1); MEAN CORPUSCULAR HEMOGLOBIN 26.2 pg (28-32); MEAN CORPUSCULAR HGB CONC 31.1 g/dL (31-35); MEAN CORPUSCULAR VOLUME 84.3 fL (81-99); MONOCYTES # (AUTO) 0.9 (0.2-0.8); MONOCYTES % 9.4 % (4.4-11.3); NEUTROPHILS # (AUTO) 6.9 (2.1-6.9); NEUTROPHILS % 70.4 % (38.7-80.0); PLATELET COUNT 316 x10e3/uL (140-360); RED BLOOD COUNT 4.77 x10e6/uL (4.3-5.7); RED CELL DISTRIBUTION WIDTH 15.5 % (11.7-14.4)
[2022-04-26] MEDS ORDERED: AMIODARONE HCL 150 MG in DEXTROSE 5% 100ML 100 ML IV SCH (18:00)
[2022-04-26] MEDS ORDERED: AMIODARONE 900MG 500 ML IV SCH (18:00)
[2022-04-26] MEDS ORDERED: AMIODARONE HCL 150 MG/100 ML BAG IV ONE (18:00)
[2022-04-26 18:03] LABS: INR 1.07; PARTIAL THROMBOPLASTIN TIME 24.3 seconds (23.8-35.5); PROTHROMBIN TIME 14.9 seconds (11.9-14.5)
[2022-04-26 18:11] LABS: ALBUMIN 2.6 g/dL (3.5-5.0); ALBUMIN/GLOBULIN RATIO 0.7 (0.8-2.0); ANION GAP 13.1 mmol/L (8-16); CREATININE, SERUM 0.64 mg/dL (0.72-1.25); POTASSIUM 3.1 mmol/L (3.5-5.1)
[2022-04-26 18:12] LABS: CALCIUM 7.2 mg/dL (8.4-10.2)
[2022-04-26 19:21] LABS: CREATINE KINASE MB 1.4 ng/mL (0-5.0)
[2022-04-26 23:11] VITALS: BP 118/59
== END 2022-04-27 00:45 | disposition other institution (70) ==
LOC: ER 17:31
DX: I48.92 Unspecified atrial flutter (principal); E11.65 Type 2 diabetes mellitus with hyperglycemia; E78.5 Hyperlipidemia, unspecified; I25.10 Atherosclerotic heart disease of native coronary artery without angina pectoris; I48.91 Unspecified atrial fibrillation; E78.00 Pure hypercholesterolemia, unspecified; I25.2 Old myocardial infarction; R94.31 Abnormal electrocardiogram [ECG] [EKG]; Z20.822 Contact with and (suspected) exposure to COVID-19
CPT/HCPCS: 36415; 71045; 80053; 82550; 82553; 83880; 84484; 85025; 85610; 85730; 93005; 99284; J7040; U0002

== ENCOUNTER 2023-04-30 06:41 | Emergency (ER) | payer MEDICARE ==
[~2023-04-30] VITALS: Ht 175.3 cm; Wt 111.1 kg
[2023-04-30] MEDS ORDERED: METOPROLOL TARTRATE INJ 1 MG/ML VIAL IV ONE ×2 (07:15→07:30)
[2023-04-30 07:30] LABS: BASOPHILS # (AUTO) 0.1 (0.0-0.1); BASOPHILS % 0.8 % (0.0-1.0); EOSINOPHILS # (AUTO) 0.2 (0.0-0.4); EOSINOPHILS % 2.2 % (0.0-6.0); HEMATOCRIT 40.5 % (38.2-49.6); HEMOGLOBIN 12.6 g/dL (14.0-18.0); LYMPHOCYTES % 23.7 % (18.0-39.1); MEAN CORPUSCULAR HEMOGLOBIN 26.3 pg (28-32); MEAN CORPUSCULAR HGB CONC 31.1 g/dL (31-35); MEAN CORPUSCULAR VOLUME 84.4 fL (81-99); MONOCYTES # (AUTO) 0.7 (0.2-0.8); MONOCYTES % 8.4 % (4.4-11.3); NEUTROPHILS # (AUTO) 5.6 (2.1-6.9); NEUTROPHILS % 64.7 % (38.7-80.0); PLATELET COUNT 360 x10e3/uL (140-360); RED CELL DISTRIBUTION WIDTH 18.6 % (11.7-14.4)
[2023-04-30 07:41] LABS: INR 0.97; PROTHROMBIN TIME 13.4 seconds (11.9-14.5)
[2023-04-30 07:42] LABS: PARTIAL THROMBOPLASTIN TIME 32.6 seconds (23.8-35.5)
[2023-04-30 07:48] LABS: ALBUMIN 3.5 g/dL (3.5-5.0); ALBUMIN/GLOBULIN RATIO 0.7 (0.8-2.0); ANION GAP 18.4 mmol/L (8-16); CALCIUM 9.5 mg/dL (8.4-10.2); CREATININE, SERUM 0.79 mg/dL (0.72-1.25); POTASSIUM 3.4 mmol/L (3.5-5.1)
[2023-04-30] MEDS ORDERED: DILTIAZEM 24HR180 MG PO (08:24)
[2023-04-30] MEDS ORDERED: TOPROL XL100 MG PO (08:24)
[2023-04-30] MEDS ORDERED: DIGOXIN INJ 0.25 MG/ML 2 ML AMP IV ONE (08:30)
[2023-04-30] MEDS ORDERED: METOPROLOL SUCCINATE 50 MG TAB XL PO ONE (09:00)
[2023-04-30 09:33] VITALS: O2SAT 99
[2023-05-01] MEDS ORDERED: METOPROLOL TAR100 MG PO (14:24)
[2023-05-01] MEDS ORDERED: ALLOPURINOL300 MG PO (14:36)
[2023-05-01] MEDS ORDERED: LEVOTHYROXINE50 MCG PO (14:39)
[2023-05-02] MEDS ORDERED: SYNTHROID125 MCG PO (15:55)
[2023-05-02] MEDS ORDERED: AMIODARONE HCL200 MG PO (15:55)
[2023-05-02] MEDS ORDERED: ONDANSETRON ODT4 MG PO (15:55)
== END 2023-04-30 09:36 | disposition home or self-care (01) ==
LOC: ER 06:47
DX: Z76.0 Encounter for issue of repeat prescription (principal); I48.20 Chronic atrial fibrillation, unspecified; E11.65 Type 2 diabetes mellitus with hyperglycemia; I10 Essential (primary) hypertension; E78.5 Hyperlipidemia, unspecified; I25.10 Atherosclerotic heart disease of native coronary artery without angina pectoris; E78.00 Pure hypercholesterolemia, unspecified; I25.2 Old myocardial infarction; R94.31 Abnormal electrocardiogram [ECG] [EKG]
CPT/HCPCS: 36415; 71045; 80053; 80162; 83880; 84484; 85025; 85610; 85730; 93005; 99284; J1160

== ENCOUNTER 2023-05-01 09:09 | Observation (INO) | payer MEDICARE ==
[~2023-05-01] VITALS: Ht 176.5 cm; Wt 122.5 kg
[~2023-05-01 09:09] MED LIST changes: +TOPROL XL100 MG PO
[2023-05-01] MEDS ORDERED: SODIUM CHLORIDE FLUSH 10 ML SYR IV PRN (09:30)
[2023-05-01 09:44] LABS: BASOPHILS # (AUTO) 0.1 (0.0-0.1); BASOPHILS % 0.7 % (0.0-1.0); EOSINOPHILS # (AUTO) 0.2 (0.0-0.4); EOSINOPHILS % 2.1 % (0.0-6.0); HEMATOCRIT 39.9 % (38.2-49.6); HEMOGLOBIN 12.7 g/dL (14.0-18.0); LYMPHOCYTES # (AUTO) 1.6 (1.0-3.2); LYMPHOCYTES % 18.9 % (18.0-39.1); MEAN CORPUSCULAR HEMOGLOBIN 26.6 pg (28-32); MEAN CORPUSCULAR HGB CONC 31.8 g/dL (31-35); MEAN CORPUSCULAR VOLUME 83.5 fL (81-99); MONOCYTES # (AUTO) 0.9 (0.2-0.8); MONOCYTES % 9.8 % (4.4-11.3); NEUTROPHILS # (AUTO) 5.9 (2.1-6.9); NEUTROPHILS % 68.2 % (38.7-80.0); PLATELET COUNT 390 x10e3/uL (140-360); RED BLOOD COUNT 4.78 x10e6/uL (4.3-5.7); RED CELL DISTRIBUTION WIDTH 18.6 % (11.7-14.4)
[2023-05-01] MEDS ORDERED: METOPROLOL TARTRATE INJ 1 MG/ML VIAL IV ONE (09:45)
[2023-05-01 09:59] LABS: ALANINE AMINOTRANSFERASE 12 IU/L (0-55); ALBUMIN 3.4 g/dL (3.5-5.0); ALBUMIN/GLOBULIN RATIO 0.8 (0.8-2.0); ALKALINE PHOSPHATASE 81 IU/L (40-150); ANION GAP 13.6 mmol/L (8-16); CALCIUM 9.5 mg/dL (8.4-10.2); CARBON DIOXIDE 29 mmol/L (22-29); CHLORIDE 99 mmol/L (98-107); CREATININE, SERUM 0.87 mg/dL (0.72-1.25); GLUCOSE 147 mg/dL (74-118); POTASSIUM 3.6 mmol/L (3.5-5.1); SODIUM 138 mmol/L (136-145)
[2023-05-01 10:14] LABS: BLOOD UREA NITROGEN < 5 mg/dL (7-26); BUN/CREATININE RATIO 6 (6-25)
[2023-05-01] MEDS ORDERED: DILTIAZEM HCL 5 MG/ML 5 ML VIAL IV ONE (10:30)
[2023-05-01] MEDS ORDERED: ASPIRIN 81 MG CHEW TAB PO ONE (11:15)
[2023-05-01] MEDS ORDERED: ONDANSETRON HCL INJ 2MG/ML 2ML 2 MG/ML VIAL IV PRN (11:15)
[2023-05-01] MEDS ORDERED: SODIUM CHLORIDE FLUSH 10 ML SYR INJ PRN (11:15)
[2023-05-01] MEDS: DILTIAZEM HCL 30 MG TAB PO SCH ×3 (12:03→20:32)
[2023-05-01 12:49] LABS: CREATINE KINASE 36 IU/L (30-200)
[2023-05-01] MEDS ORDERED: DEXTROSE 50% SYRINGE 50 ML IV PRN (13:45)
[2023-05-01] MEDS ORDERED: MELATONIN 3 MG TAB PO PRN (14:00)
[2023-05-01] MEDS ORDERED: SIMETHICONE 80 MG CHEW PO PRN (14:00)
[2023-05-01] MEDS ORDERED: ACETAMINOPHEN 325 MG TAB PO PRN (14:00)
[2023-05-01] MEDS ORDERED: DOCUSATE SODIUM 100 MG CAP PO PRN (14:00)
[2023-05-01 14:17] VITALS: BP 134/64; PULSE 73; RESP 19; TEMP 97.5; O2SAT 97
[2023-05-01] MEDS ORDERED: METOPROLOL TAR100 MG PO (14:24)
[2023-05-01] MEDS ORDERED: ALLOPURINOL300 MG PO (14:36)
[2023-05-01] MEDS ORDERED: LEVOTHYROXINE50 MCG PO (14:39)
[2023-05-01 14:54] VITALS: BP 134/64; PULSE 73; RESP 19; TEMP 97.5; O2SAT 97
[2023-05-01] MEDS: APIXABAN 5 MG TABLET PO SCH (17:46)
[2023-05-01] MEDS: FAMOTIDINE 20 MG TAB PO SCH (17:46)
[2023-05-01] MEDS: INSULIN REGULAR, HUMAN 100 UNIT/1 ML SQ SCH ×2 (17:48→20:28)
[2023-05-01 17:57] VITALS: BP 126/58; PULSE 64; RESP 15; TEMP 97.5; O2SAT 97
[2023-05-01] MEDS ORDERED: DIGOXIN INJ 0.25 MG/ML 2 ML AMP IV ONE (18:35)
[2023-05-01] MEDS: METOPROLOL TARTRATE INJ 1 MG/ML VIAL IV PRN ×2 (19:08→20:32)
[2023-05-01 20:00] VITALS: BP 124/78; PULSE 146; RESP 17; TEMP 98.1; O2SAT 100
[2023-05-01 20:30] VITALS: BP 124/78; PULSE 146; RESP 17; TEMP 98.1; O2SAT 100
[2023-05-02] VITALS (9 sets, daily range): BP systolic 111–136; BP diastolic 60–110; PULSE 63–139; RESP 14–22; TEMP 97.5–98.4; O2SAT 93–100
[2023-05-02 06:09] LABS: BASOPHILS # (AUTO) 0.1 (0.0-0.1); BASOPHILS % 0.6 % (0.0-1.0); EOSINOPHILS # (AUTO) 0.2 (0.0-0.4); EOSINOPHILS % 2.3 % (0.0-6.0); HEMATOCRIT 38.3 % (38.2-49.6); HEMOGLOBIN 11.9 g/dL (14.0-18.0); LYMPHOCYTES # (AUTO) 1.5 (1.0-3.2); LYMPHOCYTES % 17.6 % (18.0-39.1); MEAN CORPUSCULAR HEMOGLOBIN 26.3 pg (28-32); MEAN CORPUSCULAR HGB CONC 31.1 g/dL (31-35); MEAN CORPUSCULAR VOLUME 84.5 fL (81-99); MONOCYTES # (AUTO) 0.8 (0.2-0.8); MONOCYTES % 10.1 % (4.4-11.3); NEUTROPHILS # (AUTO) 5.7 (2.1-6.9); NEUTROPHILS % 69.2 % (38.7-80.0); PLATELET COUNT 350 x10e3/uL (140-360); RED BLOOD COUNT 4.53 x10e6/uL (4.3-5.7); RED CELL DISTRIBUTION WIDTH 18.5 % (11.7-14.4)
[2023-05-02] MEDS ORDERED: LEVOTHYROXINE SODIUM 125 MCG TAB PO SCH (06:30)
[2023-05-02 06:37] LABS: ALBUMIN/GLOBULIN RATIO 0.7 (0.8-2.0); ANION GAP 13.8 mmol/L (8-16); CALCIUM 9.1 mg/dL (8.4-10.2); CREATININE, SERUM 0.77 mg/dL (0.72-1.25); POTASSIUM 3.8 mmol/L (3.5-5.1)
[2023-05-02] MEDS: METOPROLOL TARTRATE INJ 1 MG/ML VIAL IV PRN (07:21)
[2023-05-02] MEDS: DILTIAZEM HCL 30 MG TAB PO SCH ×3 (07:29→16:30)
[2023-05-02] MEDS: INSULIN REGULAR, HUMAN 100 UNIT/1 ML SQ SCH ×3 (07:30→16:30)
[2023-05-02] MEDS ORDERED: AMIODARONE HCL 150 MG/100 ML BAG IV ONE (08:15)
[2023-05-02] MEDS ORDERED: AMIODARONE HCL 900 MG in DEXTROSE 5 % 500ML BOTTLE 500 ML IV SCH (08:25)
[2023-05-02 08:49] LABS: FREE T4 (FREE THYROXINE) 1.35 ng/dL (0.8-1.8); THYROID STIMULATING HORMONE 0.139 uIU/mL (0.350-4.940)
[2023-05-02] MEDS ORDERED: ASPIRIN 81 MG CHEW TAB PO SCH (09:00)
[2023-05-02] MEDS: APIXABAN 5 MG TABLET PO SCH ×2 (09:51→16:32)
[2023-05-02] MEDS: FAMOTIDINE 20 MG TAB PO SCH ×2 (09:51→16:31)
[2023-05-02] MEDS: AMIODARONE HCL 200 MG TAB PO SCH ×2 (09:51→16:31)
[2023-05-02] MEDS: METOPROLOL TARTRATE 50 MG TAB PO SCH ×2 (09:54→16:31)
[2023-05-02] MEDS ORDERED: ONDANSETRON HCL 4 MG ORAL DISINTEGRATING TAB PO PRN (11:45)
[2023-05-02] MEDS ORDERED: MIDAZOLAM HCL 2 MG/2 ML VIAL ONE ×3 (12:47→13:20)
[2023-05-02] MEDS ORDERED: BENZOCAINE 20% SPR 60 ML CAN ONE (12:48)
[2023-05-02] MEDS ORDERED: SODIUM CHLORIDE 0.9% 1000ML 1,000 ML ONE (12:48)
[2023-05-02] MEDS ORDERED: FENTANYL CITRATE/PF 100MCG/2 ML INJ ONE ×2 (12:48→13:22)
[2023-05-02] MEDS ORDERED: FUROSEMIDE INJ 10 MG/ML 4 ML VIAL ONE (13:27)
[2023-05-02] MEDS ORDERED: SYNTHROID125 MCG PO (15:55)
[2023-05-02] MEDS ORDERED: AMIODARONE HCL200 MG PO (15:55)
[2023-05-02] MEDS ORDERED: ONDANSETRON ODT4 MG PO (15:55)
== END 2023-05-02 17:47 | disposition home or self-care (01) ==
LOC: ER 09:14 → ERHOLD 11:14 → MED/SURG2 14:09
PROVIDERS: ADMIT Internal Medicine; ATTEND Internal Medicine
DX: I48.92 Unspecified atrial flutter (principal); E11.9 Type 2 diabetes mellitus without complications; E03.9 Hypothyroidism, unspecified; I11.0 Hypertensive heart disease with heart failure; I50.32 Chronic diastolic (congestive) heart failure; M10.9 Gout, unspecified; D64.9 Anemia, unspecified; I48.91 Unspecified atrial fibrillation; I25.10 Atherosclerotic heart disease of native coronary artery without angina pectoris; E78.5 Hyperlipidemia, unspecified; I25.2 Old myocardial infarction; Z20.822 Contact with and (suspected) exposure to COVID-19; Z79.02 Long term (current) use of antithrombotics/antiplatelets; Z79.82 Long term (current) use of aspirin; Z79.84 Long term (current) use of oral hypoglycemic drugs; Z79.4 Long term (current) use of insulin; Z79.899 Other long term (current) drug therapy; Z68.39 Body mass index [BMI] 39.0-39.9, adult
CPT/HCPCS: 92960; C8925; 0223U; 36415; 71045; 80053; 80061; 82550; 82948; 83036; 83735; 83880; 84439; 84443; 84484; 85025; 93005; 93306; 93312; 93320; 93325; 93355; 94760; 99152; 99153; 99284; G0378; J1160; J1940; J2250; J7030